=== PATIENT | female | born 1980 | race Caucasian/White ===

== ENCOUNTER 2021-07-31 12:55 | Emergency (ER) | payer OTHER ==
[2021-07-31 15:28] LABS: HEMOGLOBIN 16.6 gm/dl (12.3-15.3); RED BLOOD COUNT 5.35 M/UL (4.00-5.10); WHITE BLOOD COUNT 10.1 K/UL (4.5-11.0)
[2021-07-31 15:40] LABS: BUN/CREATININE RATIO 15 (0-10)
[2021-07-31] MEDS ORDERED: IBU800 MG PO (17:17)
[2021-07-31] MEDS ORDERED: CYCLOBENZAPRINE10 MG PO (17:17)
== END 2021-07-31 17:30 | disposition home or self-care (01) ==
LOC: ER1 12:55
PROVIDERS: Nurse Practitioner
DX: M54.50 Low back pain, unspecified (principal); F17.210 Nicotine dependence, cigarettes, uncomplicated; Z90.49 Acquired absence of other specified parts of digestive tract; Z90.710 Acquired absence of both cervix and uterus; Z88.0 Allergy status to penicillin
CPT/HCPCS: 80053; 81001; 85025; 99284